=== PATIENT | male | born 1945 | race Caucasian/White ===

== ENCOUNTER 2017-07-28 15:23 | Inpatient (IN) | payer OTHER ==
[~2017-07-28] VITALS: Ht 188 cm; Wt 66.7 kg
--- NOTE | 2017-07-28 15:31 | ED MVC/FALL/TRAUMA COMPLAINT ---
History of Present Illness General Chief Complaint: Syncope and Near-Syncope Stated Complaint: BIBA ?VASOVAGAL, FALL, +HEADSTRIKE, N/V AND AMS Source: patient, old records, EMS Exam Limitations: no limitations Vital Signs & Intake/Output Vital Signs & Intake/Output Vital Signs Date Time Temp Pulse Resp B/P B/P Pulse O2 O2 Flow FiO2 Mean Ox Delivery Rate 07/28 1547 98 Room Air 07/28 1541 66 18 164/74 99 Room Air 07/28 1525 77 15 163/77 96 Room Air Room Air Allergies Coded Allergies: NO KNOWN ALLERGIES (11/30/13) Reconcile Medications No Known Home Medications Triage Note: 72M BIBA S/P SYNCOPAL FALL AT [employer] WITH HEADSTRIKE AND UNKNOWN LOC. PT INITIALLY MENTATING WELL FOR EMS ON ARRIVAL. RECEIVED 4MG IVP ZOFRAN IN ROUTE FOR NAUSEA. 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 ARRIVES AWAKE AND DISTRACTED, DIFFICULTY ARTICULATING SOME THOUGHTS AND FOLLOWING COMMANDS. COLLARED OFFICE ADMINISTRATOR AND MAINTAINED ON ARRIVAL. PUPILS EQUAL AND REACTIVE BUT CONSTRICTED AT 1MM EACH. DENIES THINNERS OR DAILY MEDS. HX OF SVT AND SYNCOPAL VASOVAGAL EPISODES IN THE PAST. ACCUCHECK 100. PT IMMEDIATELY TO CT ON ARRIVAL DUE TO AMS. UNABLE TO ANSWER OR RECALL IF ETOH INGESTED TODAY. DENIES ILLICIT DRUGS. DENIES CURRENT CP/SOB Triage Nurses Notes Reviewed? yes HPI: 72-year-old male with history of SVT, history of vasovagal episodes in the past presents brought in by ambulance after he had a fall unwitnessed at [employer] just prior to arrival. Per EMS the initial call was for a fall on arrival patient was mentating alert oriented 3 he is medicated was Zofran 4 mg IV in route for nausea. He is complaining of pain to the back of his head while in route the patient began repeating himself and became confused. On arrival the patient is alert to himself, he is not oriented to person or time. He denies any other complaints at this time no arm or leg injury he is complaining of pain and back his head he denies any chest pain nausea at this time. He states he is not sure if he drank alcohol he denies any drug use (Francis ALCOCER,Heath) Past History Travel History Traveled to [place] past 21 day No Medical History Any Pertinent Medical History? see below for history Neurological: NONE EENT: NONE Cardiovascular: SVT Respiratory: NONE Gastrointestinal: NONE Hepatic: NONE Renal: NONE Musculoskeletal: NONE Psychiatric: NONE Endocrine: NONE Surgical History Surgical History: non-contributory Psychosocial History What is your primary language Occitan Tobacco Use: Refused to answer Family History Hx Contributory? No (Heath Sterling) Review of Systems Review of Systems Constitutional: Reports: see HPI. Comments Review of systems: See HPI, All other systems negative. Constitutional, no chills no fever, HEENT: no sore throat no congestion Cardiovascular: No chest pain Skin: no rashes, no change in skin Respiratory: No dyspnea no cough no sputum GI: No nausea no vomiting, : No dysuria No hematuria Muscle skeletal: No joint pain, no back pain, no neck pain, Neurologic: no headache Heme/endocrine: No bruising (Heath Sterling) Physical Exam Physical Exam General Appearance: well developed/nourished, awake Comments: Well-developed well-nourished person in no acute distress HEENT: Normal EENT exam; PERRL, EOMI, no nystagmus. HEAD is atraumatic. moist mucous membranes. Neck: C-collar in place Back: Nontender, no CVA tenderness. Full range of motion Cardiovascular: Regular rate and rhythms no murmurs rub Respiratory: Chest nontender.There were no bony deformities, no asymmetry. No respiratory distress. Patient speaking in full complete sentences. Breath sounds clear to auscultation bilaterally: NO W/R/R Abdomen: Soft, nontender nondistended, no appreciable organomegaly. Normal bowel sounds. No rebound/guarding Extremity: No edema, full range of motion of extremities 5 out of 5 strength in bilateral upper and lower extremities atraumatic Neuro: Alert oriented x1, motor sensory normal, There were no obvious focal neurologic abnormalities. Skin: No appreciable rash on exposed skin, skin is warm and dry. Psych: Mood and affect is normal, memory and judgment is normal. Core Measures ACS in differential dx? Yes CVA/TIA Diagnosis No Sepsis Present: No Sepsis Focused Exam Completed? No (Heath Sterling) Progress Differential Diagnosis: abd injury, C/T/L spine injury, ext injury, ICH, spinal cord injury, seizure, intoxication, ami, dehydration, sepsis Plan of Care: Orders Procedure Date/time Status Regular Diet 07/28 D Active Patient Data 07/28 1716 Active Patient Data 07/28 1715 Active OXYGEN SETUP (GEN) 07/28 1701 Active Saline Lock 07/28 1701 Active Admit to inpatient 07/28 1701 Active Vital Signs 07/28 1701 Active Activity/Ambulation 07/28 1701 Active Code Status 07/28 1701 Active Add-on Test (ER Only) 07/28 1620 Active URINALYSIS 07/28 1556 Complete Telemetry/Inventory Auditor 07/28 1548 Active URINE DRUG SCREEN FOR ER ONLY 07/28 1545 Complete PROLACTIN 07/28 1542 Complete TROPONIN LEVEL 07/28 1527 Complete LACTIC ACID 07/28 1527 Complete ETHANOL 07/28 1527 Complete COMPREHENSIVE METABOLIC PANEL 07/28 1527 Complete CBC WITHOUT DIFFERENTIAL 07/28 152 Complete EKG 07/28 1527 Active Laboratory Tests 07/28/17 1620: Urine Opiates Screen < 100, Methadone Screen < 40, Barbiturate Screen < 60, Ur Phencyclidine Scrn < 6.00, Amphetamines Screen < 100, U Benzodiazepines Scrn < 85, Urine Cocaine Screen < 50, Urine Cannabis Screen < 5.00, Urine Color YEL, Urine Clarity CLEAR, Urine pH 7.5, Ur Specific [place] 1.015, Urine Protein NEG, Urine Ketones TRACE H, Urine Nitrite NEG, Urine Bilirubin NEG, Urine Urobilinogen 0.2, Ur Leukocyte Esterase NEG, Ur Microscopic EXAM NOT REQUIRED, Urine Hemoglobin NEG, Urine Glucose NEG 07/28/17 1542: Anion Gap 13, Estimated GFR > 60, BUN/Creatinine Ratio 16.7, Glucose 85, Lactic Acid 1.7, Calcium 9.6, Total Bilirubin 0.8, AST 29, ALT 37, Alkaline Phosphatase 70, Troponin I < 0.01, Total Protein 6.9, Albumin 4.1, Globulin 2.8, Albumin/ Globulin Ratio 1.5, Prolactin 35.3 H, CBC w Diff NO MAN DIFF REQ, RBC 5.29, MCV 87.4, MCH 28.9, MCHC 33.0, RDW 14.2, MPV 9.2, Gran % 62.5, Lymphocytes % 28.4, Monocytes % 6.8, Eosinophils % 1.5, Basophils % 0.8, Absolute Granulocytes 4.4, Absolute Lymphocytes 2.0, Absolute Monocytes 0.5, Absolute Eosinophils 0.1, Absolute Basophils 0.1, Serum Alcohol < 10.0 CAT scan labs ordered case discussed with Dr. OVERTON AGREES WITH PLAN Patient is able to tell me his prior profession however upon telling him today's he is not able to recall the holiday today. He does not recall the episode today or prodromal symptoms 07/28/2017 4:52:48 PM I updated Albert on HIS results, he does not recall the episode today that led to him coming to the ER, cranial nerves are intact he denies any complaints he is alert and oriented to himself he is unsure where he is or what date it is. case d/w dr overton agrees with plan Diagnostic Imaging: Viewed by Me: Radiology Read, CT Scan. Discussed w/RAD: Radiology Read, CT Scan. Radiology Impression: PATIENT: ALBERT PARK PRESENT AGE: 72 PATIENT ACCOUNT NO: [id number] : 47 LOCATION: [facility] ORDERING PHYSICIAN: Franco Overton MD SERVICE DATE: 07/28/17 EXAM TYPE: CAT - CT HEAD WO IV CONTRAST EXAMINATION: CT HEAD without contrast CLINICAL INFORMATION: Injury COMPARISON: No prior CT scan available for comparison. TECHNIQUE: Computer axial with reformatted coronal images acquired. Noncontrast exam DLP: 980 mGy-cm FINDINGS: CEREBRAL HEMISPHERES: There is no evidence of intra-axial or extra-axial mass, hemorrhage or acute infarct. BRAIN PARENCHYMA: Normal gould-white matter differentiation. SUBDURAL SPACE: No bleed. BASAL GANGLIA AND PINEAL GLAND: Unremarkable VENTRICLES: Symmetric and normal in size. CEREBELLUM AND BRAINSTEM: No space-occupying mass, hemorrhage or acute infarct. CEREBELLOPONTINE ANGLES: No lesion found. ORBITS: No intraorbital mass. VESSELS: Unremarkable SKULL BASE: Unremarkable INCLUDED SINUSES AT SKULL BASE: Clear SKULL AND SKIN: No fracture or bone lesion found. IMPRESSION: No CT evidence of intracranial space-occupying mass, bleed or infarct. DICTATED BY: Sofia Haddad MD DATE/TIME DICTATED:07/28/171545 SHOP DIRECTOR:MAHESH DATE/TIME TRANSCRIBED:07/28/171545 CONFIDENTIAL, DO NOT COPY WITHOUT APPROPRIATE AUTHORIZATION. <Electronically signed in Other Vendor System> SIGNED BY: Boo BHAKTA,Sofia 07/28/17 1555, PATIENT: ALBERT PARK PRESENT AGE: 72 PATIENT ACCOUNT NO: [id number] : 47 LOCATION: [facility] ORDERING PHYSICIAN: Franco Overton MD SERVICE DATE: 07/28/17 EXAM TYPE: CAT - CT CERV SPINE WO IV CONTRAST EXAMINATION: CT CERVICAL SPINE without contrast CLINICAL INFORMATION: Injury COMPARISON: No prior CT available, TECHNIQUE: Computed axial sagittal and coronal images acquired using department' s standard protocol. CONTRAST: None DLP: 980 mGy-cm FINDINGS: SKULL BASE: Visualized structures at skull base are normal, Included facial sinuses are clear, CERVICAL VERTEBRAE: Seven cervical vertebrae identified maintaining proper height and alignment, DISCS: C1-C2: There is no CT evidence of significant osseous narrowing of the central canal or neural foramen. C2-C3: There is no CT evidence of significant osseous narrowing of the central canal or neural foramen. C3-C4: There is no CT evidence of significant osseous narrowing of the central canal or neural foramen. C4-C5: There is degenerative disc disease evident by narrowing of disc space and small posterior and lateral osteophyte ridge caused foraminal stenosis on the RIGHT. C5-C6: Degenerative disc disease combined with osteophyte ridge causes foraminal stenosis on the RIGHT. No central stenosis. No fractures. C6-C7: Degenerative disc disease evidenced by narrowing of disc space and developed osteophyte ridges cause mild narrowing of the LEFT foramen. C7-T1: There is no CT evidence of significant osseous narrowing of the central canal or neural foramen. PARAVERTEBRAL SOFT TISSUE: Paravertebral soft tissues unremarkable. IMPRESSION: 1. No CT evidence of acute fracture. 2. Degenerative disc disease at C4-C5, C5-C6, C6-C7 and C7-T1 , 3. Combination of posterior osteophyte ridges and facet joints arthropathy causes foraminal stenosis at multiple levels as above. DICTATED BY: Boo BHAKTA, Sofia DATE/TIME DICTATED:07/28/171551 SHOP DIRECTOR:MAHESH DATE/TIME TRANSCRIBED:07/28/171551 CONFIDENTIAL, DO NOT COPY WITHOUT APPROPRIATE AUTHORIZATION. <Electronically signed in Other Vendor System> SIGNED BY: Boo BHATKA,Hadeer 07/28/17 1601, PATIENT: ALBERT PARK PRESENT AGE: 72 PATIENT ACCOUNT NO: [id number] : 47 LOCATION: [facility] ORDERING PHYSICIAN: Heath ALCOCER SERVICE DATE: 07/28/17-1554 EXAM TYPE: RAD - XRY-PORTABLE CHEST XRAY EXAMINATION: XR PORTABLE CHEST CLINICAL INFORMATION: Syncope COMPARISON: None TECHNIQUE: Portable AP view of the chest was obtained. FINDINGS: The cardiac size and mediastinal silhouette are normal. No pulmonary venous congestion. The lungs are symmetrically expanded and clear. No pleural effusion or pneumothorax. The visualized bones are unremarkable. IMPRESSION: No acute cardiopulmonary findings. DICTATED BY: Elise Gaxiola MD DATE/TIME DICTATED:07/28/171645 SHOP DIRECTOR:MAHESH DATE/TIME TRANSCRIBED:07/28/171645 CONFIDENTIAL, DO NOT COPY WITHOUT APPROPRIATE AUTHORIZATION. <Electronically signed in Other Vendor System> SIGNED BY: Elise Gaxiola MD 07/28/171650 Initial ED EKG: normal intervals, normal p-waves, normal QRS complex, normal sinus rhythm Prior EKG: unchanged Rhythm Strip: normal sinus rhythm (Heath Sterling) Departure Departure Time of Disposition: 1657 Disposition: STILL A PATIENT Condition: Stable Clinical Impression Primary Impression: Syncope Secondary Impressions: Concussion, Fall Referrals: Deyvi BHAKTA,Gerald Contreras (PCP/Family) Departure Forms: Customer Survey General Discharge Information Prescriptions: Current Visit Scripts No Known Home Medications Admission Note Spoke With: Lily Ramos MD Documentation of Exam: Documentation of any treatments & extenuating circumstances including Concerns Regarding Discharge (functional status, medication knowledge or non-compliance, living conditions, etc.) that warrant an admission rather than observation: NEURO CHECKS, POSSIBLE MRI, NEURO CONSULT, PREMATURE DISCHARGE WOULD BE MEDICALLY HARMFUL (Heath Sterling) PA/HAT CUTTER Co-Sign Statement Statement: ED Attending supervision documentation- x I saw and evaluated the patient. I have also reviewed all the pertinent lab results and diagnostic results. I agree with the findings and the plan of care as documented in the PA's/HAT CUTTER's documentation. Fall with headstrike, nausea, amnesia, dizziness. Confusion continues in ED, otherwise no focal neuro deficits [] I have reviewed the ED Record and agree with the PA's/HAT CUTTER's documentation. [] Additions or exceptions (if any) to the PAs/HAT CUTTER's note and plan are summarized below: [] (Rita BHAKTA,Franco)
[2017-07-28 15:55] LABS: ABSOLUTE BASOPHIL COUNT 0.1 /CUMM (0.0-0.2); ABSOLUTE EOSINOPHIL COUNT 0.1 /CUMM (0.0-0.7); ABSOLUTE GRANULOCYTE CT 4.4 /CUMM (1.4-6.5); ABSOLUTE MONOCYTE COUNT 0.5 /CUMM (0.10-0.60); BASOPHIL % 0.8 % (0.0-2.0); EOSINOPHIL % 1.5 % (0-5); GRANULOCYTE % 62.5 % (42.2-75.2); HEMATOCRIT 46.3 % (42-52); MEAN CORPUSCULAR HGB 28.9 PG (27.0-31.0); MEAN CORPUSCULAR VOLUME 87.4 FL (80.0-94.0); MEAN PLATELET VOLUME 9.2 FL (7.4-10.4); PLATELET COUNT 245 /CUMM (130-400); RBC DISTRIBUTION WIDTH 14.2 % (11.5-14.5); RED BLOOD CELL CT 5.29 /CUMM (4.70-6.10); WHITE BLOOD CELL COUNT 7.1 /CUMM (4.8-10.8)
--- NOTE | 2017-07-28 15:55 | CT SCAN REPORT ---
EXAMINATION: CT HEAD without contrast CLINICAL INFORMATION: Injury COMPARISON: No prior CT scan available for comparison. TECHNIQUE: Computer axial with reformatted coronal images acquired. Noncontrast exam DLP: 980 mGy-cm FINDINGS: CEREBRAL HEMISPHERES: There is no evidence of intra-axial or extra-axial mass, hemorrhage or acute infarct. BRAIN PARENCHYMA: Normal gould-white matter differentiation. SUBDURAL SPACE: No bleed. BASAL GANGLIA AND PINEAL GLAND: Unremarkable VENTRICLES: Symmetric and normal in size. CEREBELLUM AND BRAINSTEM: No space-occupying mass, hemorrhage or acute infarct. CEREBELLOPONTINE ANGLES: No lesion found. ORBITS: No intraorbital mass. VESSELS: Unremarkable SKULL BASE: Unremarkable INCLUDED SINUSES AT SKULL BASE: Clear SKULL AND SKIN: No fracture or bone lesion found. IMPRESSION: No CT evidence of intracranial space-occupying mass, bleed or infarct.
--- NOTE | 2017-07-28 16:01 | CT SCAN REPORT ---
EXAMINATION: CT CERVICAL SPINE without contrast CLINICAL INFORMATION: Injury COMPARISON: No prior CT available, TECHNIQUE: Computed axial sagittal and coronal images acquired using department's standard protocol. CONTRAST: None DLP: 980 mGy-cm FINDINGS: SKULL BASE: Visualized structures at skull base are normal, Included facial sinuses are clear, CERVICAL VERTEBRAE: Seven cervical vertebrae identified maintaining proper height and alignment, DISCS: C1-C2: There is no CT evidence of significant osseous narrowing of the central canal or neural foramen. C2-C3: There is no CT evidence of significant osseous narrowing of the central canal or neural foramen. C3-C4: There is no CT evidence of significant osseous narrowing of the central canal or neural foramen. C4-C5: There is degenerative disc disease evident by narrowing of disc space and small posterior and lateral osteophyte ridge caused foraminal stenosis on the RIGHT. C5-C6: Degenerative disc disease combined with osteophyte ridge causes foraminal stenosis on the RIGHT. No central stenosis. No fractures. C6-C7: Degenerative disc disease evidenced by narrowing of disc space and developed osteophyte ridges cause mild narrowing of the LEFT foramen. C7-T1: There is no CT evidence of significant osseous narrowing of the central canal or neural foramen. PARAVERTEBRAL SOFT TISSUE: Paravertebral soft tissues unremarkable. IMPRESSION: 1. No CT evidence of acute fracture. 2. Degenerative disc disease at C4-C5, C5-C6, C6-C7 and C7-T1, 3. Combination of posterior osteophyte ridges and facet joints arthropathy causes foraminal stenosis at multiple levels as above.
--- NOTE | 2017-07-28 16:51 | RADIOLOGY REPORT ---
EXAMINATION: XR PORTABLE CHEST CLINICAL INFORMATION: Syncope COMPARISON: None TECHNIQUE: Portable AP view of the chest was obtained. FINDINGS: The cardiac size and mediastinal silhouette are normal. No pulmonary venous congestion. The lungs are symmetrically expanded and clear. No pleural effusion or pneumothorax. The visualized bones are unremarkable. IMPRESSION: No acute cardiopulmonary findings.
--- NOTE | 2017-07-28 17:08 | History & Physical ---
Lupis BHAKTA,[facility] 07/28/17 6337: General Information and HPI MD Statement: I have seen and personally examined ADEN PARK and documented this H&P. The patient is a 72 year old M who presented with a patient stated chief complaint of [syncopal episode]. Source of Information: patient, old records Exam Limitations: no limitations History of Present Illness: 72-year-old male with past medical history of SVT, anxiety, and recurrent vasovagal attack who presented after syncopal episode followed by confusion. The patient had one beer and pizza, he then went to [employer] for shopping. He reports feeling lightheaded as if he is going to get vasovagal attack. He then started to breathe slowly which a technique he does to avoid the vasovagal attacks, his lightheadedness then resolved and he continued shopping. Then he had an syncopal episode on his way to the car. He denies any palpitation, chest pain, shortness breath or dizziness prior to the episode. It's not clear if he had the seizure activity, however he did not bite his tongue or lose control over his bowel or urine habits. While in the ED he was confused and disoriented , however he was alert and oriented X3 when I saw him. He denies any current active complaints except mild lightheadedness and mild occipital headache from the fall. The patient reports sleep per patient during the past 2 days secondary to life stressors. The patient was seen in 2013 because of palpitation and was found to be in SVT with a heart rate to 200, at that time he responded well to adenosine and was discharged and instructed to follow with Dr. Walsh and Dr. Summers. He had extensive workup as an outpatient that didn't relieve any significant finding, and since then he didn't follow up with branch director. Allergies/Medications Allergies: Coded Allergies: NO KNOWN ALLERGIES (11/30/13) Past History Travel History Traveled to [place] past 21 day No Medical History Neurological: NONE EENT: NONE Cardiovascular: SVT Respiratory: NONE Gastrointestinal: NONE Hepatic: NONE Renal: NONE Musculoskeletal: NONE Psychiatric: NONE Endocrine: NONE Surgical History Surgical History: non-contributory Review of Systems Review of Systems Constitutional: Denies: chills, diaphoresis, fever, malaise, weakness, unexplained weight loss. EENTM: Denies: visual changes, hearing changes. Cardiovascular: Reports: syncope. Denies: chest pain, edema, orthopena, palpitations, peripheral edema. Respiratory: Denies: cough, orthopnea, short of breath, sputum production, wheezing. GI: Reports: nausea. Denies: bloating, constipation, diarrhea, vomiting. Genitourinary: Denies: dysuria, hematuria. Skin: Denies: rash. Neurological/Psychological: Reports: confusion, headache. Denies: anxiety, cognitive dysfunction, depressed , dementia, numbness, paresthesia, tingling, tremors, tonic-clonic seizures. Exam & Diagnostic Data Last 24 Hrs of Vital Signs/I&O Vital Signs Date Time Temp Pulse Resp B/P B/P Pulse O2 O2 Flow FiO2 Mean Ox Delivery Rate 07/28 1847 81 18 166/78 98 Room Air 07/28 1755 88 18 179/83 99 Room Air 07/28 1547 98 Room Air 07/28 1541 66 18 164/74 99 Room Air 07/28 1525 77 15 163/77 96 Room Air Room Air Physical Exam General Appearance Alert, Oriented X3, Cooperative, No Acute Distress Skin No Rashes HEENT PERRLA, EOMI, Mucous Membr. moist/pink, mild lump in the except hip region secondary to the fall Neck Supple, No JVD Cardiovascular Regular Rate, Normal S1, Normal S2, No Murmurs Lungs Clear to Auscultation, Normal Air Movement Abdomen Soft, No Tenderness Neurological Normal Speech, Strength at 5/5 X4 Ext, Sensation Intact, Cranial Nerves 3-12 NL Extremities No Clubbing, No Cyanosis, No Edema Last 24 Hrs of Labs/Tang: Laboratory Tests 07/28/17 1827: Lactic Acid Cancelled 07/28/17 1620: Urine Opiates Screen < 100, Methadone Screen < 40, Barbiturate Screen < 60, Ur Phencyclidine Scrn < 6.00, Amphetamines Screen < 100, U Benzodiazepines Scrn < 85, Urine Cocaine Screen < 50, Urine Cannabis Screen < 5.00, Urine Color YEL, Urine Clarity CLEAR, Urine pH 7.5, Ur Specific [place] 1.015, Urine Protein NEG, Urine Ketones TRACE H, Urine Nitrite NEG, Urine Bilirubin NEG, Urine Urobilinogen 0.2, Ur Leukocyte Esterase NEG, Ur Microscopic EXAM NOT REQUIRED, Urine Hemoglobin NEG, Urine Glucose NEG 07/28/17 1542: Anion Gap 13, Estimated GFR > 60, BUN/Creatinine Ratio 16.7, Glucose 85, Lactic Acid 1.7, Calcium 9.6, Total Bilirubin 0.8, AST 29, ALT 37, Alkaline Phosphatase 70, Troponin I < 0.01, Total Protein 6.9, Albumin 4.1, Globulin 2.8, Albumin/ Globulin Ratio 1.5, TSH 2.390, Free T4 0.94, Free T3 4.2, Prolactin 35.3 H, CBC w Diff NO MAN DIFF REQ, RBC 5.29, MCV 87.4, MCH 28.9, MCHC 33.0, RDW 14.2, MPV 9.2, Gran % 62.5, Lymphocytes % 28.4, Monocytes % 6.8, Eosinophils % 1.5, Basophils % 0.8, Absolute Granulocytes 4.4, Absolute Lymphocytes 2.0, Absolute Monocytes 0.5, Absolute Eosinophils 0.1, Absolute Basophils 0.1, Serum Alcohol < 10.0 Assessment/Plan Assessment: 72-year-old male with a past medical history of SVT and recurrent vasovagal attack. He was shopping when he felt lightheaded, soon after he had an episode of syncopal followed by confusion that continued until he was in the ED. Even though the patient denies palpitation arrhythmia still high in the differential given his past medical history, his confusion is possibly secondary to concussion given the head trauma. His CT head ruled out any intracranial pathology. It is also possible that he had seizure activity which can also explain the confusion, especially given elevated prolactin on admission. We will send for thyroid function test as TRH can increase the prolactin level as well. Plan #Syncopal episode followed by confusion * Monitor in telemetry to rule out arrhythmias * Rule out ACS with serial troponin and EKG * Orthostatic check * Seizure precaution * EEG in the morning * Echocardiogram * Cardiology consult with #Hyperlipidemia * Continue statin #BPH * Continue tamsulosin after ruling out orthostatic hypotension Regular diet DVT prophylaxis subcutaneous heparin Full code As Ranked By This Provider Problem List: 1. Syncope 2. Fall Core Measures/Misc (11/17) Acute Coronary Syndrome ACS Diagnosis: No Congestive Heart Failure Congestive Heart Failure Diagnosis No Cerebrovascular Accident CVA/TIA Diagnosis: No VTE (View Protocol) VTE Risk Factors Age>40 No Mechanical VTE Prophylaxis d/t N/A MechProphylax Ordered No VTE Pharm Prophylaxis d/t NA PharmProphylax ordered Sepsis (View protocol) Sepsis Present: No If YES complete Sepsis Event Note If YES complete Sepsis Event Note Gabino BHAKTA, [facility] 07/28/171935: General Information and HPI Allergies/Medications Home Med list Rosuvastatin Calcium (Crestor) 10 MG TABLET 1 TAB PO DAILY hld (Reported) Tamsulosin HCl 0.4 MG CAP.ER.24H 1 CAP PO DAILY bph (Reported) Core Measures/Misc (11/17) Sepsis (View protocol) If YES complete Sepsis Event Note If YES complete Sepsis Event Note Attending MD Review Statement Attending Statement Attending MD Statement: examined this patient, discuss w/resident/PA/WINDOW SHADE CUTTER AND MOUNTER, agreed w/resident/PA/WINDOW SHADE CUTTER AND MOUNTER, reviewed images, amended to note Attending Assessment/Plan: 72 yo M with h/o anxiety, vasovagal episodes, SVT, BPH, HLD, previous left kidney ablation ?cancer, is brought after a syncopal episode at [facility] with head strike. As per ER records, it was an unwitnessed episode with unknown duration of LOC and if he may have had a seizure. Upon ER arrival, patient was confused (unsure of events) and oriented only to person. Upon my evaluation, patient was alert and oriented, able to provide more details. He reports going to a restaurant earlier today, ate a pizza, salad and drank a glass of beer. He then went to [facility] to check out a few things. At one point, he felt palpitations and lightheadedness, but was able to curb the episode by taking a deep breath/ Valsalva's maneuver. He then started walking around [facility], and the next thing he remembers is being in the ER. He currently feels lightheaded especially when changing positions and from the impact of the fall. He denies chest pain, dyspnea, palpitations, nausea or diaphoresis. Of note, patient was seen in [place] [facility] (Nov 2013) for an episode of SVT that responded to adenosine. He had been evaluated by Dr. Gray and Dr. Finney with 30-day monitor, Tilt table testing, stress test that were unremarkable. He also had a stress test that was normal. He intermittently has episodes of palpitations and lightheadedness that breaks with 'taking a deep breath'/ Valsalva's maneuver, and he has never passed out. Previously, he used to have more frequent episodes but of late it is only once every 4 months. Patient does not consume enough fluids, has been sleepless for past 2 days and recently has been stressed about home furnishings. Vitals: afebrile, HR 70-80's, BP 160/80, sats 99% RA. Non focal neuro exam. Very dry mucous membranes. Labs: troponin is negative. TSH, free T4 normal. Prolactin is elevated at 35.3. UA and Utox negative. Alcohol <10. CT head/ cervical spine: no acute fracture, degenerative disc disease of cervical spine. CXR: no acute findings. EKG: Sinus rhythm, no acute changes. QTc 431. Orthostats: BP Lying 170/79 --> Standing 186/82 --> Lying 163/84, patient was dizzy throughout with position change. Assessment and plan: 1. Syncope and collapse - seems multifactorial - most likely related to SVT ( although no EKG documentation) and orthostatic hypotension. Patient was confused on ER arrival and his prolactin was elevated although nonspecific, seizure episode needs to be ruled out. 2. Undiagnosed hypertension - not on any meds 3. History of SVT 4. History of HLD and BPH - Admit to Telemetry - Neurochecks - Fall, seizure precautions - Monitor for arrhythmias - Serial EKG and troponin to rule out ACS - Obtain Echocardiogram - Cardio consult (Dr. Gray) - Obtain records of previous stress test/ Holter. - Gentle IV fluids, recheck orthostats in AM - Encourage PO intake - Monitor BP overnight, if persistently elevated, we may need to initiate therapy with CCB or GEETHA - EEG in AM - Continue home meds tamsulosin and statin - PT eval DVT ppx Lovenox. Full code.
[2017-07-28] MEDS ORDERED: CRESTOR10 M1 PO (18:08)
[2017-07-28] MEDS ORDERED: TAMSULOSIN HCL0.4 M1 PO (18:08)
--- NOTE | 2017-07-28 19:37 | Admission Certification ---
Admission Certification Certification Statement - As attending physician, I certify that at the time of - admission, based on clinical presentation, severity of - symptoms, need for further diagnostic testing and - therapeutic interventions, and risk of adverse outcomes - without in-hospital treatment, in my clinical assessment, - this patient requires an acute hospital stay for a minimum - of two nights or longer. I have also considered psychsocial - factors such as support system, advanced age, financial - issues, cognitive issues, and failed out-patient treatments, - past re-admission history, safety of patient, and lack of - compliance as applicable. Specific rationale supporting this admission is: Syncope
[2017-07-28 22:47] VITALS: BP 152/80
[2017-07-29 03:14] VITALS: BP 164/78
[2017-07-29 03:29] LABS: ABSOLUTE BASOPHIL COUNT 0 /CUMM (0.0-0.2); ABSOLUTE EOSINOPHIL COUNT 0.1 /CUMM (0.0-0.7); ABSOLUTE GRANULOCYTE CT 5.8 /CUMM (1.4-6.5); ABSOLUTE LYMPH COUNT 1.6 /CUMM (1.2-3.4); ABSOLUTE MONOCYTE COUNT 0.7 /CUMM (0.10-0.60); BASOPHIL % 0.3 % (0.0-2.0); EOSINOPHIL % 0.9 % (0-5); HEMATOCRIT 41.9 % (42-52); MEAN CORPUSCULAR HGB 29.2 PG (27.0-31.0); MEAN CORPUSCULAR HGB CONC 33.5 G/DL (33.0-37.0); MEAN CORPUSCULAR VOLUME 87.3 FL (80.0-94.0); PLATELET COUNT 216 /CUMM (130-400); WHITE BLOOD CELL COUNT 8.2 /CUMM (4.8-10.8)
[2017-07-29 06:57] VITALS: BP 144/78
--- NOTE | 2017-07-29 07:17 | PN- Housestaff ---
Opal BHAKTA,[facility] 07/29/17 0717: Subjective Follow-up For: Syncope Tele-Events Since Last Visit: NSR with HR 60-73. No overnight events. Subjective: Patient seen and examined. States that he has difficulty moving his head around and getting up from bed due to dizziness. He feels the fluid hydration is improving it. Describes a history of vasovagal syncope with episodes preceeded by flushing and warmth sensation, however, the episode yesterday was completely different. Review of Systems Constitutional: Reports: no symptoms. Objective Last 24 Hrs of Vital Signs/I&O Vital Signs Date Time Temp Pulse Resp B/P B/P Pulse O2 O2 Flow FiO2 Mean Ox Delivery Rate 07/29 0657 98.3 63 12 144/78 95 Room Air 07/29 0314 62 164/78 07/28 2247 98.8 70 22 152/80 98 07/28 2144 62 18 155/76 99 Room Air 07/28 2053 98.5 79 18 160/80 99 Room Air 07/28 1847 81 18 166/78 98 Room Air 07/28 1755 88 18 179/83 99 Room Air 07/28 1547 98 Room Air 07/28 1541 66 18 164/74 99 Room Air 07/28 1525 77 15 163/77 96 Room Air Room Air Intake & Output 07/29 1600 07/29 0800 07/29 0000 Intake Total 225 Output Total 500 Balance -275 Intake, IV 225 Output, Urine 500 Patient 197 lb Weight Weight Bed scale Measurement Method Physical Exam General Appearance: Alert, Oriented X3, Cooperative, Mild Distress Skin: No Rashes, No Breakdown Skin Temp/Moisture Exam: Warm/Dry Sepsis Skin Exam (color): Normal for Ethnicity HEENT: Atraumatic Cardiovascular: Normal S1, Normal S2, No Murmurs Lungs: Clear to Auscultation, Normal Air Movement Abdomen: Soft, No Tenderness Neurological: Normal Speech Extremities: No Edema Last 24 Hrs of Lab/Tang Results Last 24 Hrs of Labs/Mics: Laboratory Tests 07/29/17 0255: Anion Gap 8, Estimated GFR > 60, BUN/Creatinine Ratio 15.0, Troponin I < 0.01, CBC w Diff NO MAN DIFF REQ, RBC 4.80, MCV 87.3, MCH 29.2, MCHC 33.5, RDW 14.0, MPV 9.0, Gran % 71.0, Lymphocytes % 19.0 L, Monocytes % 8.8, Eosinophils % 0.9, Basophils % 0.3, Absolute Granulocytes 5.8, Absolute Lymphocytes 1.6, Absolute Monocytes 0.7 H, Absolute Eosinophils 0.1, Absolute Basophils 0 07/28/172045: Troponin I < 0.01 07/28/17 1827: Lactic Acid Cancelled 07/28/17 1620: Urine Opiates Screen < 100, Methadone Screen < 40, Barbiturate Screen < 60, Ur Phencyclidine Scrn < 6.00, Amphetamines Screen < 100, U Benzodiazepines Scrn < 85, Urine Cocaine Screen < 50, Urine Cannabis Screen < 5.00, Urine Color YEL, Urine Clarity CLEAR, Urine pH 7.5, Ur Specific [place] 1.015, Urine Protein NEG, Urine Ketones TRACE H, Urine Nitrite NEG, Urine Bilirubin NEG, Urine Urobilinogen 0.2, Ur Leukocyte Esterase NEG, Ur Microscopic EXAM NOT REQUIRED, Urine Hemoglobin NEG, Urine Glucose NEG 07/28/17 1542: Anion Gap 13, Estimated GFR > 60, BUN/Creatinine Ratio 16.7, Glucose 85, Lactic Acid 1.7, Calcium 9.6, Total Bilirubin 0.8, AST 29, ALT 37, Alkaline Phosphatase 70, Troponin I < 0.01, Total Protein 6.9, Albumin 4.1, Globulin 2.8, Albumin/ Globulin Ratio 1.5, TSH 2.390, Free T4 0.94, Free T3 4.2, Prolactin 35.3 H, CBC w Diff NO MAN DIFF REQ, RBC 5.29, MCV 87.4, MCH 28.9, MCHC 33.0, RDW 14.2, MPV 9.2, Gran % 62.5, Lymphocytes % 28.4, Monocytes % 6.8, Eosinophils % 1.5, Basophils % 0.8, Absolute Granulocytes 4.4, Absolute Lymphocytes 2.0, Absolute Monocytes 0.5, Absolute Eosinophils 0.1, Absolute Basophils 0.1, Serum Alcohol < 10.0 Assessment/Plan Assessment: 72-year-old male with a past medical history of SVT and recurrent vasovagal attack was brought to the ED after he had an episode of unresponsiveness while walking to his car. Assessment: 1. Syncope 2. Dizziness 3. History of Vasovagal Syncope 4. History of Hyperlipidemia 5. History of BPH Plan: * Continue monitoring on telemetry for now. * It is unclear what precipitated his episode of syncope. He states this one is different from his usual vasovagal symptoms * It is possible he had an episode of seizure as on regaining consciousness in the ED he had confusion suggestive of a post ictal state. * It is unclear what is precipitating his dizziness at this point. * He had a +ve angelica-hallpike and was treated with talibgrayson helm. * Continue PT * EEG - pending * Neurology evaluation - pending * Echocardiogram to assess LVEF etc - pending * Cardiology suggests for a possible loop recorder. * Continue statin and tamsulosin * Diet: regular * DVT Prophylaxis: SC Lovenox * Code: Full Code Problem List: 1. Syncope Pain Ratin Pain Location: none Pain Goal: Remain pain free Pain Plan: none Tomorrow's Labs & Rationales: none DVT/Prophylaxis: pharmacological Fadumo Gray MD 07/29/17 1018: Attending MD Review Statement Attending Statement Attending MD Statement: examined this patient, discuss w/resident/PA/MORTGAGE OPERATIONS MANAGER, agreed w/resident/PA/MORTGAGE OPERATIONS MANAGER, reviewed EMR data (avail), discussed with nursing, discussed with case mgmt, reviewed images Attending Assessment/Plan: 72-year-old male with past medical history both of SVT in the distant past and history of recurrent vasovagal syncopal events. He is here after a syncopal event. This event was markedly different from the others in that he had no warning, no aura, lost consciousness and was confused for a period of time after that. He was orthostatic in the ER and he continues to remain dizzy now despite adequate fluid hydration. The postal transportation clerk is going to see him and we are going to get an echocardiogram. Given the confusion post syncope and the elevated prolactin, will also have neurology see him to make sure that this wasn't a seizure-like event.
--- NOTE | 2017-07-29 09:57 | Cons- Cardiology ---
General Information and HPI Consulting Request Date of Consult: 07/29/17 Requested By: Isaac BHAKTA,Fadumo Contreras Reason for Consult: Syncope Source of Information: patient Exam Limitations: no limitations History of Present Illness: The patient is a 72-year-old male with a history of paroxysmal supraventricular tachycardia in the past, recurrent vasovagal episodes who now presents with a syncopal episode. Patient states that he was seen approximately [address] Walsh and Dr[address] Finney for episodes of SVT. He presented to the emergency room with palpitations at that time was found to be in an SVT and treated with adenosine. His episodes were infrequent and therefore at that time and ablation was not recommended. He did have a 30 day monitor that demonstrated no arrhythmias. He does have recurrent episodes of near syncope that appear to be vasovagal. He states he is normally able to control them by taking a few deep breaths or, if necessary, placing his head between his legs. He has never had syncope up until this admission. He states that he had a beer and some pizza prior to going to [facility]. He was walking and had a syncopal episode. He does not recall anything including being transported to the hospital, the CAT scan etc. Finally awoke and does remember being asked questions regarding the day of the week etc. Just prior to the episode he denied chest pain shortness of breath or palpitations. He did not lose control his bladder or urine. He denies smoking, drug use, nor excessive alcohol consumption. He continues to have episodes of dizziness with sitting up and lying back down where he feels that the room is spinning. Upon further questioning he states that he was in [place] had "the worst cold of his life". It was thought that he may have had valley fever. He had dizziness at that time. Allergies/Medications Allergies: Coded Allergies: NO KNOWN ALLERGIES (11/30/13) Home Med List: Rosuvastatin Calcium (Crestor) 10 MG TABLET 1 TAB PO DAILY hld (Reported) Tamsulosin HCl 0.4 MG CAP.ER.24H 1 CAP PO DAILY bph (Reported) Current Medications: Current Medications Sig/Shamika Start time Last Medication Dose Route Stop Time Status Admin Atorvastatin Calcium 40 MG 1700 07/29 1700 AC PO Ceftriaxone Sodium 1,000 MG ONCE ONE 07/28 2014 CAN IV 07/29 2015 Heparin Sodium 5,000 UNIT Q8 07/28 2200 AC 07/29 (Porcine) SC 0606 Naloxone HCl 0 .STK-MED ONE 07/28 1543 DC .ROUTE Sodium Chloride 1,000 ML Q13H 07/28 2145 AC 07/29 IV 07/29 2344 0254 Sodium Chloride 1,000 ML BOLUS ONE 07/28 2130 CAN IV 07/28 2229 Sodium Chloride 1,000 ML BOLUS ONE 07/28 1600 DC 07/28 IV 07/28 1659 1600 Tamsulosin HCl 0.4 MG DAILY 07/29 0900 AC PO Review of Systems Review of Systems: Eyes no blurred or double vision Ears no deafness or ringing Nose and throat no recurrent sinusitis Lungs per history of present illness Heart per history of present illness Abdomen no nausea vomiting Musculoskeletal occasional muscle and joint pains Psych no anxiety or depression Neuro as per HPI Endocrine no heat or cold intolerance Past History Travel History Traveled to [place] past 21 day No Medical History Blood Transfusion Hx: Yes Neurological: NONE EENT: NONE Cardiovascular: SVT Respiratory: NONE Gastrointestinal: NONE Hepatic: NONE Renal: NONE Musculoskeletal: NONE Psychiatric: NONE Endocrine: NONE Blood Disorders: NONE Cancer(s): NONE 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 Home Smoking Status: Never Smoked Exam & Diagnostic Data Vital Signs and I&O Vital Signs Date Time Temp Pulse Resp B/P B/P Pulse O2 O2 Flow FiO2 Mean Ox Delivery Rate 07/29 0657 98.3 63 12 144/78 95 Room Air 07/29 0314 62 164/78 07/28 2247 98.8 70 22 152/80 98 07/28 2144 62 18 155/76 99 Room Air 07/28 2053 98.5 79 18 160/80 99 Room Air 07/28 1847 81 18 166/78 98 Room Air 07/28 1755 88 18 179/83 99 Room Air 07/28 1547 98 Room Air 07/28 1541 66 18 164/74 99 Room Air 07/28 1525 77 15 163/77 96 Room Air Room Air Intake & Output 07/29 1600 07/29 0800 07/29 0000 07/28 1600 07/28 0800 07/28 0000 Intake Total 225 Output Total 500 Balance -275 Intake, IV 225 Output, Urine 500 Patient 197 lb Weight Weight Bed scale Measurement Method Physical Exam: Patient is a well-developed well-nourished male appearing in no acute distress HEENT is unremarkable Neck is supple there is no JVD Lungs are clear Heart regular rhythm S1 and S2 are normal no murmurs gallops or rubs Abdomen bowel sounds positive Extremities without edema Skin warm and dry Neuro no focal deficits Lymphatic no adenopathy Labs/Tang Results: Laboratory Tests 07/29 07/28 07/28 0255 2046 1827 Chemistry Sodium (137 - 145 mmol/L) 142 Potassium (3.5 - 5.1 mmol/L) 4.1 Chloride (98 - 107 mmol/L) 108 H Carbon Dioxide (22 - 30 mmol/L) 25 Anion Gap (5 - 16) 8 BUN (9 - 20 mg/dL) 12 Creatinine (0.7 - 1.2 mg/dL) 0.8 Estimated GFR (>60 ml/min) > 60 BUN/Creatinine Ratio (7 - 25 %) 15.0 Lactic Acid Cancelled Troponin I (<0.11 ng/ml) < 0.01 < 0.01 Hematology CBC w Diff NO MAN DIFF REQ WBC (4.8 - 10.8 /CUMM) 8.2 RBC (4.70 - 6.10 /CUMM) 4.80 Hgb (14.0 - 18.0 G/DL) 14.0 Hct (42 - 52 %) 41.9 L MCV (80.0 - 94.0 FL) 87.3 MCH (27.0 - 31.0 PG) 29.2 MCHC (33.0 - 37.0 G/DL) 33.5 RDW (11.5 - 14.5 %) 14.0 Plt Count (130 - 400 /CUMM) 216 MPV (7.4 - 10.4 FL) 9.0 Gran % (42.2 - 75.2 %) 71.0 Lymphocytes % (20.5 - 51.1 %) 19.0 L Monocytes % (1.7 - 9.3 %) 8.8 Eosinophils % (0 - 5 %) 0.9 Basophils % (0.0 - 2.0 %) 0.3 Absolute Granulocytes (1.4 - 6.5 /CUMM) 5.8 Absolute Lymphocytes (1.2 - 3.4 /CUMM) 1.6 Absolute Monocytes (0.10 - 0.60 /CUMM) 0.7 H Absolute Eosinophils (0.0 - 0.7 /CUMM) 0.1 Absolute Basophils (0.0 - 0.2 /CUMM) 0 07/28 07/28 1620 1542 Chemistry Sodium (137 - 145 mmol/L) 143 Potassium (3.5 - 5.1 mmol/L) 3.8 Chloride (98 - 107 mmol/L) 103 Carbon Dioxide (22 - 30 mmol/L) 26 Anion Gap (5 - 16) 13 BUN (9 - 20 mg/dL) 15 Creatinine (0.7 - 1.2 mg/dL) 0.9 Estimated GFR (>60 ml/min) > 60 BUN/Creatinine Ratio (7 - 25 %) 16.7 Glucose (65 - 99 mg/dL) 85 Lactic Acid (0.7 - 2.1 mmol/L) 1.7 Calcium (8.4 - 10.2 mg/dL) 9.6 Total Bilirubin (0.2 - 1.3 mg/dL) 0.8 AST (17 - 59 U/L) 29 ALT (21 - 72 U/L) 37 Alkaline Phosphatase (< 127 U/L) 70 Troponin I (<0.11 ng/ml) < 0.01 Total Protein (6.3 - 8.2 g/dL) 6.9 Albumin (3.5 - 5.0 g/dL) 4.1 Globulin (1.9 - 4.2 gm/dL) 2.8 Albumin/Globulin Ratio (1.1 - 2.2 %) 1.5 TSH (0.270 - 4.200 uIU/mL) 2.390 Free T4 (0.78 - 2.44 ng/dL) 0.94 Free T3 (2.45 - 5.93 pg/mL) 4.2 Prolactin (3.7 - 17.9 ng/mL) 35.3 H Hematology CBC w Diff NO MAN DIFF REQ WBC (4.8 - 10.8 /CUMM) 7.1 RBC (4.70 - 6.10 /CUMM) 5.29 Hgb (14.0 - 18.0 G/DL) 15.3 Hct (42 - 52 %) 46.3 MCV (80.0 - 94.0 FL) 87.4 MCH (27.0 - 31.0 PG) 28.9 MCHC (33.0 - 37.0 G/DL) 33.0 RDW (11.5 - 14.5 %) 14.2 Plt Count (130 - 400 /CUMM) 245 MPV (7.4 - 10.4 FL) 9.2 Gran % (42.2 - 75.2 %) 62.5 Lymphocytes % (20.5 - 51.1 %) 28.4 Monocytes % (1.7 - 9.3 %) 6.8 Eosinophils % (0 - 5 %) 1.5 Basophils % (0.0 - 2.0 %) 0.8 Absolute Granulocytes (1.4 - 6.5 /CUMM) 4.4 Absolute Lymphocytes (1.2 - 3.4 /CUMM) 2.0 Absolute Monocytes (0.10 - 0.60 /CUMM) 0.5 Absolute Eosinophils (0.0 - 0.7 /CUMM) 0.1 Absolute Basophils (0.0 - 0.2 /CUMM) 0.1 Toxicology Urine Opiates Screen (>2000 NG/ML) < 100 Methadone Screen (>300 NG/ML) < 40 Barbiturate Screen (>200 NG/ML) < 60 Ur Phencyclidine Scrn (>25 NG/ML) < 6.00 Amphetamines Screen (>1000 NG/ML) < 100 U Benzodiazepines Scrn (>200 NG/ML) < 85 Urine Cocaine Screen (>300 NG/ML) < 50 Urine Cannabis Screen (>50 NG/ML) < 5.00 Serum Alcohol (<10 MG/DL) < 10.0 Urines Urine Color (YEL,AMB,STR) YEL Urine Clarity (CLEAR) CLEAR Urine pH (5.0 - 8.0) 7.5 Ur Specific [place] (1.001 - 1.035) 1.015 Urine Protein (NEG,<30 MG/DL) NEG Urine Ketones (NEG) TRACE H Urine Nitrite (NEG) NEG Urine Bilirubin (NEG) NEG Urine Urobilinogen (0.1 - 1.0 EU/dl) 0.2 Ur Leukocyte Esterase (NEG) NEG Ur Microscopic EXAM NOT REQUIRED Urine Hemoglobin (NEG) NEG Urine Glucose (N MG/DL) NEG Diagnostic Data EKG Results Sinus rhythm no acute changes CXR Results No active disease Other Results CT of the head No acute process or mass Assessment/Plan Assessment/Plan 1. Syncope questionable etiology. It is very unlikely that it is secondary to his history of SVT. He does have a vasovagal episode but this was the first episode of syncope. He was confused after the event but suggest a post ictal state and possible seizure. His prolactin was elevated. 2. Paroxysmal supraventricular tachycardia by history 3. Status post nephrectomy 4. Recurrent dizziness with slight movement of his head consider possible vestibular process. CT of the head was negative Recommendations 1. Continue to monitor on telemetry 2. Echocardiogram is pending 3. EEG is pending 4. If no etiology to his syncope is determined would consider an implantable loop recorder. Thank you for allowing [facility] to participate in the care of your patient. Consult Acknowledgment - Thank you for your consult request.
--- NOTE | 2017-07-29 14:22 | ECHOCARDIOGRAM REPORT ---
ADEN PARK Age: 72 : 1945 Gender: M Exam Date: 07/29/2017 10:51 Exam Location: Echo Lab Ht (in): 70 Wt (lb): 215 BSA: 2.22 BP: 144 / 78 Ordering Physician: Janes Baugh MD Referring Physician: Janes Baugh MD Technologist: Haresh Higgins [facility] Room Number: 180-2 Indications: PRESYNCOPE/SYNCOPE Rhythm: Sinus Technical Quality: fair FINDINGS Left Ventricle Normal size left ventricle.left ventricular wall thickness mildly increased. Normal left ventricular ejection fraction estimated at 60-65%. Right Ventricle Normal right ventricular size and function. Right Atrium Normal right atrial size. Left Atrium Left atrial size at the upper limits of normal. Mitral Valve Mild mitral annular calcification. Mild mitral regurgitation. Aortic Valve Aortic sclerosis. Trace to mild aortic regurgitation. Tricuspid Valve Tricuspid valve is normal in structure and function. Trace to mild tricuspid regurgitation. Pulmonic Valve Pulmonic valve not well visualized, grossly normal. Pericardium No pericardial effusion. Great Vessels Normal size aortic root. CONCLUSIONS Normal left ventricular systolic function with mild concentric hypertrophy. No significant valvular abnormalities noted. Bi Gray M.D. (Electronically Signed) Final Date: 29 Jul 2017 14:21 MEASUREMENTS (Male / Female) Normal Values 2D ECHO LV Diastolic Diameter PLAX 4.8 cm 4.2 - 5.9 / 3.9 - 5.3 cm LV Systolic Diameter PLAX 2.8 cm 2.1 - 4.0 cm LV Fractional Shortening PLAX 42.1 % 25 - 46 % LV Ejection Fraction 2D Teich 73.0 % IVS Diastolic Thickness 1.2 cm LVPW Diastolic Thickness 1.3 cm LV Relative Wall Thickness 0.5 Aortic Root Diameter 3.1 cm LV Ejection Fraction MOD BP 59.6 % >= 55 % LV Cardiac Index MOD BP 2171.4 cm/minm LV Diastolic Length 4C 7.7 cm 6.9 - 10.3 cm LV Diastolic Area 4C 27.0 cm LV Diastolic Volume MOD 4C 78.0 cm LV Ejection Fraction MOD 4C 51.3 % LV Stroke Volume MOD 4C 40.0 cm LV Cardiac Index MOD 4C 1638.8 cm/minm LV Systolic Length 4C 7.0 cm LV Systolic Area 4C 17.7 cm LV Systolic Volume MOD 4C 38.0 cm LV Ejection Fraction MOD 2C 66.3 % LV Cardiac Index MOD 2C 2663.0 cm/minm LV Diastolic Volume 4C AL 80.4 cm 85 - 139 / 69 - 109 cm LV Systolic Volume 4C AL 38.3 cm LV Ejection Fraction 4C AL 52.3 % LV Stroke Volume 4C AL 42.1 cm LV Cardiac Index 4C AL 1722.9 cm/minm LV Ejection Fraction 2C AL 67.6 % LV Cardiac Index 2C AL 2741.5 cm/minm DOPPLER AV Peak Velocity 124.0 cm/s AV Peak Gradient 6.2 mmHg LVOT Peak Velocity 97.2 cm/s LVOT Peak Gradient 3.8 mmHg Mitral E Point Velocity 64.7 cm/s Mitral A Point Velocity 70.6 cm/s Mitral E to A Ratio 0.9 MV Deceleration Time 180.0 ms TR Peak Velocity 247.0 cm/s TR Peak Gradient 24.4 mmHg PV Peak Velocity 105.0 cm/s PV Peak Gradient 4.4 mmHg
[2017-07-29 15:04] VITALS: BP 152/84
[2017-07-29 22:28] VITALS: BP 140/76
[2017-07-30 06:54] VITALS: BP 154/80
--- NOTE | 2017-07-30 07:02 | PN- Housestaff ---
Opal BHAKTA,[facility] 07/30/17 0702: Subjective Follow-up For: Syncope Tele-Events Since Last Visit: SB/NSR with HR 55-64. No overnight events. Subjective: Feels well. States the physical therapy made a significant improvement to his vertigo. He looks forward to his next treatment today. He feels some of his symptoms are due to a viral infection which he had a month ago. Review of Systems Constitutional: Reports: no symptoms. Objective Last 24 Hrs of Vital Signs/I&O Vital Signs Date Time Temp Pulse Resp B/P B/P Pulse O2 O2 Flow FiO2 Mean Ox Delivery Rate 07/30 0654 98.3 63 12 154/80 96 Room Air 07/29 2228 98.2 65 20 140/76 97 Room Air 07/29 1504 98.4 79 20 152/84 97 Room Air Intake & Output 07/30 0800 07/30 0000 07/29 1600 Intake Total 635 609 3849 Output Total 300 650 Balance 150 -200 400 Intake, IV 450 Intake, Oral 150 100 600 Number 0 Bowel Movements Output, Urine 300 650 Patient 147 lb Weight Weight Bed scale Measurement Method Physical Exam General Appearance: Alert, Oriented X3, Cooperative, Mild Distress Skin: No Rashes, No Breakdown Skin Temp/Moisture Exam: Warm/Dry Sepsis Skin Exam (color): Normal for Ethnicity HEENT: Atraumatic Cardiovascular: Normal S1, Normal S2, No Murmurs Lungs: Clear to Auscultation, Normal Air Movement Abdomen: Soft, No Tenderness Neurological: Normal Speech Extremities: No Edema Assessment/Plan Assessment: 72-year-old male with a past medical history of SVT and recurrent vasovagal attack was brought to the ED after he had an episode of unresponsiveness while walking to his car. Assessment: 1. Syncope 2. BPPV 3. History of Vasovagal Syncope 4. History of Hyperlipidemia 5. History of BPH Plan: * Discontinue telemetry. He is stable to be discharged today. * It is unclear what precipitated his episode of syncope. He states this one is different from his usual vasovagal symptoms * His EEG showed no focal or epileptiform abnormalities * It is unclear what precipitated his dizziness but he reports significant improvement with talib meneuver. * Continue PT. Will require outpatient vestibular rehab. This requires prior auth from PCP for which the patient has been educated. * Will start him on meclizine 12.5mg TIDprn on discharge if symptoms persists. * Echocardiogram showed normal LVEF with no valvular abnormalities. * Continue statin and tamsulosin * Diet: regular * DVT Prophylaxis: SC Lovenox * Code: Full Code Problem List: 1. Syncope Pain Ratin Pain Location: none Pain Goal: Remain pain free Pain Plan: none Tomorrow's Labs & Rationales: none Fadumo Gray MD 07/30/17 0949: Attending MD Review Statement Attending Statement Attending MD Statement: examined this patient, discuss w/resident/PA/SCHOOL BUS DISPATCHER, agreed w/resident/PA/SCHOOL BUS DISPATCHER, reviewed EMR data (avail), discussed with nursing, discussed with case mgmt, reviewed images Attending Assessment/Plan: Patient feels markedly better after physical therapy did the Talib maneuver. He was able to walk and his dizziness was better. Today he trialed stairs as well. His echo is completely normal and there been no arrhythmias on the monitor. He will had his EEG and will await neurology follow-up and if cleared by neurology and the EEG is negative then the plan is discharge today with close outpatient follow-up. He is in the process of transitioning to a PCP in [place] and he will follow-up with that PCP. He understands he needs a referral for outpatient vestibular rehabilitation.
--- NOTE | 2017-07-30 07:23 | Patient Discharge Instructions ---
Discharge Instructions General Discharge Information You were seen/treated for: Syncope Special Instructions: Please follow up with your PCP and recep within one week of discharge. Please request your PCP for a vestibular rehab referral. Please follow up with a ENT within 1-2 weeks of discharge. Diet Continue normal diet: Yes Activity Full Activity/No Limits: Yes Acute Coronary Syndrome Inclusion Criteria At DC or during hospital stay patient has or had the following: ACS DIAGNOSIS No Discharge Core Measures Meds if any: Prescribed or Continued at Discharge Meds if any: NOT Prescribed or Continued at Discharge Congestive Heart Failure Inclusion Criteria At DC or during hospital stay patient has or had the following: CHF DIAGNOSIS No Discharge Core Measures Meds if any: Prescribed or Continued at Discharge Meds if any: NOT Prescribed or Continued at Discharge Cerebrovascular accident Inclusion Criteria At DC or during hospital stay patient has or had the following: CVA/TIA Diagnosis No Discharge Core Measures Meds if any: Prescribed or Continued at Discharge Meds if any: NOT Prescribed or Continued at Discharge Venous thromboembolism Inclusion Criteria VTE Diagnosis No VTE Type NONE VTE Confirmed by (Test) NONE Discharge Core Measures - Per Current guidelines, there needs to be overlap - treatment for the first 5 days of Warfarin therapy. - If discharged on Warfarin prior to 5 days of - overlap therapy, the patient will need to be - assessed for post discharge needs including - *Post discharge parental anticoagulation - *Warfarin and/or parental anticoagulation education - *Follow up date to check INR post discharge At least 5 days overlap therapy as Inpatient No Meds if any: Prescribed or Continued at Discharge Note: Overlap Therapy is Warfarin and Anticoagulant Meds if any: NOT Prescribed or Continued at Discharge
--- NOTE | 2017-07-30 09:13 | Cons- Neurology ---
General Information and HPI Consulting Request Date of Consult: 07/30/17 Requested By: Fadumo Gray MD Reason for Consult: vertigo, syncope Source of Information: patient, MD, EMR History of Present Illness: 72-year-old man with a long history of neurocardiogenic syncope and a history of SVT was out shopping several days ago when he apparently passed out but this was unwitnessed. He struck his head. He was found on the ground and brought to the [facility] ED and subsequently admitted. There is no mention of any observation of convulsive activity or incontinence. There was no tongue biting. There is no history of seizures strokes or TIAs. The patient states he does not remember falling and does not remember the ambulance ride. This differs from his typical syncopal episode in which she usually feels diaphoretic and can often abort this spell by lying down. Yesterday when he was moving around in the bed he felt dizzy. The physical therapist did some vestibular maneuvers and he states he now feels better. Allergies/Medications Allergies: Coded Allergies: NO KNOWN ALLERGIES (NONE 07/29/17) Home Med List: Meclizine HCl 12.5 MG TABLET 1 TAB PO TIDPRN Dizziness Rosuvastatin Calcium (Crestor) 10 MG TABLET 1 TAB PO DAILY hld (Reported) Tamsulosin HCl 0.4 MG CAP.ER.24H 1 CAP PO DAILY bph (Reported) Current Medications: Current Medications Sig/Shamika Start time Last Medication Dose Route Stop Time Status Admin Atorvastatin Calcium 40 MG 1700 07/29 1700 AC 07/29 PO 1659 Enoxaparin Sodium 40 MG DAILY 07/29 1424 AC 07/29 SC 1658 Fluticasone 2 SPRAY DAILY 07/29 2330 AC 07/30 Propionate GRANT 0613 Heparin Sodium 5,000 UNIT Q8 07/28 2200 DC 07/29 (Porcine) SC 0606 Meclizine HCl 25 MG 1130 07/29 1130 DC PO 07/29 1131 Sodium Chloride 1,000 ML Q13H 07/28 2145 DC 07/29 IV 07/29 2344 0254 Tamsulosin HCl 0.4 MG 1900 07/29 1900 AC 07/29 PO 1852 Tamsulosin HCl 0.4 MG DAILY 07/29 0900 DC PO Review of Systems Review of Systems: REVIEW OF SYSTEMS: (-) = negative / normal blank = not discussed Neurologic: see HPI Eyes: (-) ENT: Reports some sinus congestion Constitutional: (-) CV: See HPI; cardiology plans to implant a loop recorder Respiratory: (-) /Renal: (-) Musculoskeletal: (-) Skin: (-) Psychiatric: (-) Heme: (-) GI: (-) Allergy/Immune: (-) Endocrine: (-) Other: (-) Past History Travel History Traveled to [place] past 21 day No Medical History Blood Transfusion Hx: Yes Neurological: NONE EENT: NONE Cardiovascular: SVT Respiratory: NONE Gastrointestinal: NONE Hepatic: NONE Renal: NONE Musculoskeletal: NONE Psychiatric: NONE Endocrine: NONE Blood Disorders: NONE Cancer(s): NONE 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 Home Smoking Status: Never Smoked Exam & Diagnostic Data Vital Signs and I&O Vital Signs Date Time Temp Pulse Resp B/P B/P Pulse O2 O2 Flow FiO2 Mean Ox Delivery Rate 07/30 0654 98.3 63 12 154/80 96 Room Air 07/29 2228 98.2 65 20 140/76 97 Room Air 07/29 1504 98.4 79 20 152/84 97 Room Air Intake & Output 07/30 1600 07/30 0800 07/30 0000 Intake Total 150 100 Output Total 300 Balance 150 -200 Intake, Oral 150 100 Output, Urine 300 Patient 147 lb Weight Weight Bed scale Measurement Method Physical Exam: PHYSICAL EXAMINATION: nl = normal NT or blank = not tested GENERAL Appearance: nl Head: Reports mild tenderness in the occiput Eyes: nl ENT: nl Neck: nl Carotids: nl Lungs: nl Heart: nl Extremities: nl NEUROLOGIC MENTAL STATUS Level of consciousness: nl Orientation: nl Attention / Concentration: nl Memory: nl Fund of Knowledge: nl Speech / Language: nl NEUROLOGIC CRANIAL NERVES I: Olfaction: NT II: Optic nerves: nl Visual [place]: nl III: Pupils: nl Levator pal[place]brae: nl III, IV, : Ocular alignment: nl Extraocular motility: nl Pursuits/ saccades: nl V: Facial sensation: nl Masseter/Pterygoids: nl VII: Facial Motor: nl VIII: Hearing (finger rub): nl IX, X: Uvula and palate: nl XI: SCM, Upper trap.: nl XII: Tongue: nl MOTOR / NEUROMUSCULAR Bulk: nl Tone: nl Strength: nl Rapid alternating movements: nl Fine motor movements: nl Abnormal / involuntary movements: none CEREBELLAR / COORDINATION: intact SENSATION: intact DTR's symmetrically trace to 1+ PLANTARS: flexor GAIT: nl; tandem gait and single limb stance unsteady Last 48 Hours of Lab Results: Laboratory Tests 07/29 07/28 07/28 0255 2046 1827 Chemistry Sodium (137 - 145 mmol/L) 142 Potassium (3.5 - 5.1 mmol/L) 4.1 Chloride (98 - 107 mmol/L) 108 H Carbon Dioxide (22 - 30 mmol/L) 25 Anion Gap (5 - 16) 8 BUN (9 - 20 mg/dL) 12 Creatinine (0.7 - 1.2 mg/dL) 0.8 Estimated GFR (>60 ml/min) > 60 BUN/Creatinine Ratio (7 - 25 %) 15.0 Lactic Acid Cancelled Troponin I (<0.11 ng/ml) < 0.01 < 0.01 Hematology CBC w Diff NO MAN DIFF REQ WBC (4.8 - 10.8 /CUMM) 8.2 RBC (4.70 - 6.10 /CUMM) 4.80 Hgb (14.0 - 18.0 G/DL) 14.0 Hct (42 - 52 %) 41.9 L MCV (80.0 - 94.0 FL) 87.3 MCH (27.0 - 31.0 PG) 29.2 MCHC (33.0 - 37.0 G/DL) 33.5 RDW (11.5 - 14.5 %) 14.0 Plt Count (130 - 400 /CUMM) 216 MPV (7.4 - 10.4 FL) 9.0 Gran % (42.2 - 75.2 %) 71.0 Lymphocytes % (20.5 - 51.1 %) 19.0 L Monocytes % (1.7 - 9.3 %) 8.8 Eosinophils % (0 - 5 %) 0.9 Basophils % (0.0 - 2.0 %) 0.3 Absolute Granulocytes (1.4 - 6.5 /CUMM) 5.8 Absolute Lymphocytes (1.2 - 3.4 /CUMM) 1.6 Absolute Monocytes (0.10 - 0.60 /CUMM) 0.7 H Absolute Eosinophils (0.0 - 0.7 /CUMM) 0.1 Absolute Basophils (0.0 - 0.2 /CUMM) 0 07/28 07/28 1620 1542 Chemistry Sodium (137 - 145 mmol/L) 143 Potassium (3.5 - 5.1 mmol/L) 3.8 Chloride (98 - 107 mmol/L) 103 Carbon Dioxide (22 - 30 mmol/L) 26 Anion Gap (5 - 16) 13 BUN (9 - 20 mg/dL) 15 Creatinine (0.7 - 1.2 mg/dL) 0.9 Estimated GFR (>60 ml/min) > 60 BUN/Creatinine Ratio (7 - 25 %) 16.7 Glucose (65 - 99 mg/dL) 85 Lactic Acid (0.7 - 2.1 mmol/L) 1.7 Calcium (8.4 - 10.2 mg/dL) 9.6 Total Bilirubin (0.2 - 1.3 mg/dL) 0.8 AST (17 - 59 U/L) 29 ALT (21 - 72 U/L) 37 Alkaline Phosphatase (< 127 U/L) 70 Troponin I (<0.11 ng/ml) < 0.01 Total Protein (6.3 - 8.2 g/dL) 6.9 Albumin (3.5 - 5.0 g/dL) 4.1 Globulin (1.9 - 4.2 gm/dL) 2.8 Albumin/Globulin Ratio (1.1 - 2.2 %) 1.5 TSH (0.270 - 4.200 uIU/mL) 2.390 Free T4 (0.78 - 2.44 ng/dL) 0.94 Free T3 (2.45 - 5.93 pg/mL) 4.2 Prolactin (3.7 - 17.9 ng/mL) 35.3 H Hematology CBC w Diff NO MAN DIFF REQ WBC (4.8 - 10.8 /CUMM) 7.1 RBC (4.70 - 6.10 /CUMM) 5.29 Hgb (14.0 - 18.0 G/DL) 15.3 Hct (42 - 52 %) 46.3 MCV (80.0 - 94.0 FL) 87.4 MCH (27.0 - 31.0 PG) 28.9 MCHC (33.0 - 37.0 G/DL) 33.0 RDW (11.5 - 14.5 %) 14.2 Plt Count (130 - 400 /CUMM) 245 MPV (7.4 - 10.4 FL) 9.2 Gran % (42.2 - 75.2 %) 62.5 Lymphocytes % (20.5 - 51.1 %) 28.4 Monocytes % (1.7 - 9.3 %) 6.8 Eosinophils % (0 - 5 %) 1.5 Basophils % (0.0 - 2.0 %) 0.8 Absolute Granulocytes (1.4 - 6.5 /CUMM) 4.4 Absolute Lymphocytes (1.2 - 3.4 /CUMM) 2.0 Absolute Monocytes (0.10 - 0.60 /CUMM) 0.5 Absolute Eosinophils (0.0 - 0.7 /CUMM) 0.1 Absolute Basophils (0.0 - 0.2 /CUMM) 0.1 Toxicology Urine Opiates Screen (>2000 NG/ML) < 100 Methadone Screen (>300 NG/ML) < 40 Barbiturate Screen (>200 NG/ML) < 60 Ur Phencyclidine Scrn (>25 NG/ML) < 6.00 Amphetamines Screen (>1000 NG/ML) < 100 U Benzodiazepines Scrn (>200 NG/ML) < 85 Urine Cocaine Screen (>300 NG/ML) < 50 Urine Cannabis Screen (>50 NG/ML) < 5.00 Serum Alcohol (<10 MG/DL) < 10.0 Urines Urine Color (YEL,AMB,STR) YEL Urine Clarity (CLEAR) CLEAR Urine pH (5.0 - 8.0) 7.5 Ur Specific [place] (1.001 - 1.035) 1.015 Urine Protein (NEG,<30 MG/DL) NEG Urine Ketones (NEG) TRACE H Urine Nitrite (NEG) NEG Urine Bilirubin (NEG) NEG Urine Urobilinogen (0.1 - 1.0 EU/dl) 0.2 Ur Leukocyte Esterase (NEG) NEG Ur Microscopic EXAM NOT REQUIRED Urine Hemoglobin (NEG) NEG Urine Glucose (N MG/DL) NEG Imaging/Other Studies: EEG 07/29/2017: Normal IMPRESSION: No CT evidence of intracranial space-occupying mass, bleed or infarct. DICTATED BY: Boo BHAKTA,Sofia DATE/TIME DICTATED:07/28/17 / 1546 CT C sp IMPRESSION: 1. No CT evidence of acute fracture. 2. Degenerative disc disease at C4-C5, C5-C6, C6-C7 and C7-T1, 3. Combination of posterior osteophyte ridges and facet joints arthropathy causes foraminal stenosis at multiple levels as above. DICTATED BY: Sofia Haddad MD DATE/TIME DICTATED:07/28/172 FINDINGS Left Ventricle Normal size left ventricle.left ventricular wall thickness mildly increased. Normal left ventricular ejection fraction estimated at 60-65%. Right Ventricle Normal right ventricular size and function. Right Atrium Normal right atrial size. Left Atrium Left atrial size at the upper limits of normal. Mitral Valve Mild mitral annular calcification. Mild mitral regurgitation. Aortic Valve Aortic sclerosis. Trace to mild aortic regurgitation. Tricuspid Valve Tricuspid valve is normal in structure and function. Trace to mild tricuspid regurgitation. Pulmonic Valve Pulmonic valve not well visualized, grossly normal. Pericardium No pericardial effusion. Great Vessels Normal size aortic root. CONCLUSIONS Normal left ventricular systolic function with mild concentric hypertrophy. No significant valvular abnormalities noted. Bi Gray M.D. (Electronically Signed) Final Date: 29 Jul 2017 14:21 Assessment/Plan Assessment: Syncope most likely vasovagal versus arrhythmogenic given his history of SVT. History less suggestive of seizure or TIA. Recommendations: Continued cardiac workup Maintain adequate hydration and liberalize sodium intake to help increase cerebral blood volume Consider adding thigh high compression stockings to help promote venous return Office follow-up as needed Consult Acknowledgment - Thank you for your consult request.
[2017-07-30] MEDS ORDERED: MECLIZINE HCL12.5 M1 PO ×2 (09:44→10:10)
--- NOTE | 2017-07-30 10:06 | ELECTROENCEPHALOGRAM REPORT ---
Electroencephalogram Report Electroencephalogram Results Date of service: 07/29/17 Attending MD: Isaac BHAKTA,Fadumo Contreras [employer] Helper: Ben Davis EEG Number: [id number] Test Utilizes: 10-20 system, 21 lead 18 channel digital recording Pertinent Hx/Physical/Neuro Findings/Clin Diagnosis: syncope versus seizure Inpatient Medications: Current Medications Sig/Shamika Start time Last Medication Dose Route Stop Time Status Admin Atorvastatin Calcium 40 MG 1700 07/29 1700 AC 07/29 PO 1659 Enoxaparin Sodium 40 MG DAILY 07/29 1424 AC 07/29 SC 1658 Fluticasone 2 SPRAY DAILY 07/29 2330 AC 07/30 Propionate GRANT 0613 Heparin Sodium 5,000 UNIT Q8 07/28 2200 DC 07/29 (Porcine) SC 0606 Meclizine HCl 25 MG 1130 07/29 1130 DC PO 07/29 1131 Sodium Chloride 1,000 ML Q13H 07/28 2145 DC 07/29 IV 07/29 2344 0254 Tamsulosin HCl 0.4 MG 1900 07/29 1900 AC 07/29 PO 1852 Tamsulosin HCl 0.4 MG DAILY 07/29 0900 DC PO Interpretation: The background is composed of well-formed moderate amplitude posterior 9 Hz alpha which attenuates on eye opening. Low voltage faster beta activity is intermixed and seen best in the frontal regions. There are no focal, lateralized or epileptiform abnormalities. Hyperventilation and photic stimulation were performed and at no additional information Impression: Normal EEG in the states of wakefulness and drowsiness. No focal or epileptiform abnormalities identified.
--- NOTE | 2017-07-30 10:11 | Discharge Summary ---
Visit Information Visit Dates Admission Date: 07/28/17 Discharge Date: 07/30/17 Hospital Course Course Attending Physician: Isaac BHAKTA,Fadumo Contreras Primary Care Physician: Elier BHAKTA, [facility] Course: Mr Covington is a pleasant 72-year-old male with a past medical history of SVT, vasovagal episodes, hyperlipidemia and BPH who was brought to the ED after he had an episode of unwitnessed syncope. Below is a list of conditions he was admitted and treated for 1. Syncope 2. BPPV On arrival to ED, patient was alert but not oriented to person or time. He had been complaining of pain in the back of his head. Initial CT scan of the head in the ED did not reveal any acute abnormalities. He was admitted to the telemetry floor for monitoring of arrhythmias. ACS was ruled out with serial negative troponins and EKGs. It is unclear what precipitated his episode of syncope. He felt that this episode was different from his usual vasovagal symptoms even though earlier that day he did experience the prodromal symptoms. He was evaluated by cardiology and neurology. An echocardiogram was performed which showed normal LVEF with no valvular abnormalities. . Telemetry tracings showed no evidence of pauses or arrhythmias. His neurological exam was unremarkable and his EEG showed no focal or epileptiform abnormalities. It is possible that his syncope was likely another vasovagal episode as his history was less suggestive of seizure. He had complains of dizziness and vertigo with head movements the following morning, concerning for BPPV. He had a positive Angus-Hallpike maneuver. He was treated by physical therapy with significant improvement in his symptoms. He will require outpatient vestibular rehab. This requires prior authorization from PCP for which the patient has been asked to request from his PCP. He was discharged on PO Meclizine to be used as needed for his dizziness. He was recommended to follow up with his remote advisor after discharge with considerations for implantable loop recorder if he has recurrent symptoms. Allergies: Coded Allergies: NO KNOWN ALLERGIES (NONE 07/29/17) Significant Procedures: Electroencephalogram Interpretation: The background is composed of well-formed moderate amplitude posterior 9 Hz alpha which attenuates on eye opening. Low voltage faster beta activity is intermixed and seen best in the frontal regions. There are no focal, lateralized or epileptiform abnormalities. Hyperventilation and photic stimulation were performed and at no additional information Impression: Normal EEG in the states of wakefulness and drowsiness. No focal or epileptiform abnormalities identified. SERVICE DATE: 07/28/17 EXAM TYPE: CARD - ECHOCARDIOGRAM FINDINGS Left Ventricle Normal size left ventricle.left ventricular wall thickness mildly increased. Normal left ventricular ejection fraction estimated at 60-65%. Right Ventricle Normal right ventricular size and function. Right Atrium Normal right atrial size. Left Atrium Left atrial size at the upper limits of normal. Mitral Valve Mild mitral annular calcification. Mild mitral regurgitation. Aortic Valve Aortic sclerosis. Trace to mild aortic regurgitation. Tricuspid Valve Tricuspid valve is normal in structure and function. Trace to mild tricuspid regurgitation. Pulmonic Valve Pulmonic valve not well visualized, grossly normal. Pericardium No pericardial effusion. Great Vessels Normal size aortic root. CONCLUSIONS Normal left ventricular systolic function with mild concentric hypertrophy. No significant valvular abnormalities noted. SERVICE DATE: 07/28/17 EXAM TYPE: RAD - XRY-PORTABLE CHEST XRAY FINDINGS: The cardiac size and mediastinal silhouette are normal. No pulmonary venous congestion. The lungs are symmetrically expanded and clear. No pleural effusion or pneumothorax. The visualized bones are unremarkable. IMPRESSION: No acute cardiopulmonary findings. SERVICE DATE: 07/28/17 EXAM TYPE: CAT - CT HEAD WO IV CONTRAST FINDINGS: CEREBRAL HEMISPHERES: There is no evidence of intra-axial or extra-axial mass, hemorrhage or acute infarct. BRAIN PARENCHYMA: Normal gould-white matter differentiation. SUBDURAL SPACE: No bleed. BASAL GANGLIA AND PINEAL GLAND: Unremarkable VENTRICLES: Symmetric and normal in size. CEREBELLUM AND BRAINSTEM: No space-occupying mass, hemorrhage or acute infarct. CEREBELLOPONTINE ANGLES: No lesion found. ORBITS: No intraorbital mass. VESSELS: Unremarkable SKULL BASE: Unremarkable INCLUDED SINUSES AT SKULL BASE: Clear SKULL AND SKIN: No fracture or bone lesion found. IMPRESSION: No CT evidence of intracranial space-occupying mass, bleed or infarct. SERVICE DATE: 07/28/17 EXAM TYPE: CAT - CT CERV SPINE WO IV CONTRAST FINDINGS: SKULL BASE: Visualized structures at skull base are normal, Included facial sinuses are clear, CERVICAL VERTEBRAE: Seven cervical vertebrae identified maintaining proper height and alignment, DISCS: C1-C2: There is no CT evidence of significant osseous narrowing of the central canal or neural foramen. C2-C3: There is no CT evidence of significant osseous narrowing of the central canal or neural foramen. C3-C4: There is no CT evidence of significant osseous narrowing of the central canal or neural foramen. C4-C5: There is degenerative disc disease evident by narrowing of disc space and small posterior and lateral osteophyte ridge caused foraminal stenosis on the RIGHT. C5-C6: Degenerative disc disease combined with osteophyte ridge causes foraminal stenosis on the RIGHT. No central stenosis. No fractures. C6-C7: Degenerative disc disease evidenced by narrowing of disc space and developed osteophyte ridges cause mild narrowing of the LEFT foramen. C7-T1: There is no CT evidence of significant osseous narrowing of the central canal or neural foramen. PARAVERTEBRAL SOFT TISSUE: Paravertebral soft tissues unremarkable. IMPRESSION: 1. No CT evidence of acute fracture. 2. Degenerative disc disease at C4-C5, C5-C6, C6-C7 and C7-T1, 3. Combination of posterior osteophyte ridges and facet joints arthropathy causes foraminal stenosis at multiple levels as above. Disposition Summary Disposition Principal Diagnosis: Syncope Benign Paroxysmal Positional Vertigo Additional Diagnosis: Vasovagal Syncope SVT BPH Hyperlipidemia Discharge Disposition: home or self care Discharge Instructions General Discharge Information Code Status: Full Code Patient's Diet: Regular Patient's Activity: As tolerated Follow-Up Instructions/Appts: Please follow up with your PCP and remote advisor within one week of discharge. Please request your PCP for a vestibular rehab referral. Please follow up with a ENT within 1-2 weeks of discharge. Medications at Discharge Discharge Medications: Continue taking these medications: Tamsulosin HCl (Tamsulosin HCl) 0.4 MG CAP.ER.24H 1 Capsule ORAL DAILY Qty = 90 Comments: Last Taken: 07/29/17 Time: 7:00 PM Rosuvastatin Calcium (Crestor) 10 MG TABLET 1 Tablet ORAL DAILY Qty = 38 Comments: Last Taken: 07/29/17 Time: 5:00 PM Start taking the following new medications: Meclizine HCl (Meclizine HCl) 12.5 MG TABLET 1 Tablet ORAL THREE TIMES A DAY NEEDED Qty = 30 No Refills Comments: NOT GIVEN IN HOSPITAL Copies To: Erik BHAKTA,Albert Garcia MD
--- NOTE | 2017-07-30 10:54 | PN- Cardiology ---
Subjective Subjective: Patient is resting comfortably without new complaints. Objective Vital Signs and I&Os Vital Signs Date Time Temp Pulse Resp B/P B/P Pulse O2 O2 Flow FiO2 Mean Ox Delivery Rate 07/30 0654 98.3 63 12 154/80 96 Room Air 07/29 2228 98.2 65 20 140/76 97 Room Air 07/29 1504 98.4 79 20 152/84 97 Room Air Intake & Output 07/30 1600 07/30 0800 07/30 0000 07/29 1600 07/29 0800 07/29 0000 Intake Total 446 386 2716 225 Output Total 300 650 500 Balance 150 -200 400 -275 Intake, IV 450 225 Intake, Oral 150 100 600 Number 0 Bowel Movements Output, Urine 300 650 500 Patient 147 lb 197 lb Weight Weight Bed scale Bed scale Measurement Method Physical Exam: General: no apparent distress. Alert. Eyes: No obvious scleral icterus. HEENT: No jugular venous distention or abnormal jugular venous pulsations. Cardiovascular: Normal intensity S1/S2. PMI not grossly displaced. Respiratory: Lungs clear to auscultation bilaterally. Abdomen: Soft, nontender with no guarding or rebound tenderness. Musculoskeletal: No clubbing or cyanosis noted Skin: warm Neurologic: No gross focal deficits noted. Lymph: No gross lymphadenopathy. Current Medications: Current Medications Sig/Shamika Start time Last Medication Dose Route Stop Time Status Admin Atorvastatin Calcium 40 MG 1700 07/29 1700 AC 07/29 PO 1659 Enoxaparin Sodium 40 MG 1700 07/30 1700 AC SC Enoxaparin Sodium 40 MG DAILY 07/29 1424 DC 07/29 SC 1658 Fluticasone 2 SPRAY DAILY 07/29 2330 AC 07/30 Propionate GRANT 0613 Heparin Sodium 5,000 UNIT Q8 07/28 2200 DC 07/29 (Porcine) SC 0606 Meclizine HCl 25 MG 1130 07/29 1130 DC PO 07/29 1131 Sodium Chloride 1,000 ML Q13H 07/28 2145 DC 07/29 IV 07/29 2344 0254 Tamsulosin HCl 0.4 MG 1900 07/29 1900 AC 07/29 PO 1852 Tamsulosin HCl 0.4 MG DAILY 07/29 0900 DC PO Results Last 48 Hrs of Labs/Mics: Laboratory Tests 07/29/17 0255: Anion Gap 8, Estimated GFR > 60, BUN/Creatinine Ratio 15.0, Troponin I < 0.01, CBC w Diff NO MAN DIFF REQ, RBC 4.80, MCV 87.3, MCH 29.2, MCHC 33.5, RDW 14.0, MPV 9.0, Gran % 71.0, Lymphocytes % 19.0 L, Monocytes % 8.8, Eosinophils % 0.9, Basophils % 0.3, Absolute Granulocytes 5.8, Absolute Lymphocytes 1.6, Absolute Monocytes 0.7 H, Absolute Eosinophils 0.1, Absolute Basophils 0 07/28/172045: Troponin I < 0.01 07/28/17 1827: Lactic Acid Cancelled 07/28/17 1620: Urine Opiates Screen < 100, Methadone Screen < 40, Barbiturate Screen < 60, Ur Phencyclidine Scrn < 6.00, Amphetamines Screen < 100, U Benzodiazepines Scrn < 85, Urine Cocaine Screen < 50, Urine Cannabis Screen < 5.00, Urine Color YEL, Urine Clarity CLEAR, Urine pH 7.5, Ur Specific [place] 1.015, Urine Protein NEG, Urine Ketones TRACE H, Urine Nitrite NEG, Urine Bilirubin NEG, Urine Urobilinogen 0.2, Ur Leukocyte Esterase NEG, Ur Microscopic EXAM NOT REQUIRED, Urine Hemoglobin NEG, Urine Glucose NEG 07/28/17 1542: Anion Gap 13, Estimated GFR > 60, BUN/Creatinine Ratio 16.7, Glucose 85, Lactic Acid 1.7, Calcium 9.6, Total Bilirubin 0.8, AST 29, ALT 37, Alkaline Phosphatase 70, Troponin I < 0.01, Total Protein 6.9, Albumin 4.1, Globulin 2.8, Albumin/ Globulin Ratio 1.5, TSH 2.390, Free T4 0.94, Free T3 4.2, Prolactin 35.3 H, CBC w Diff NO MAN DIFF REQ, RBC 5.29, MCV 87.4, MCH 28.9, MCHC 33.0, RDW 14.2, MPV 9.2, Gran % 62.5, Lymphocytes % 28.4, Monocytes % 6.8, Eosinophils % 1.5, Basophils % 0.8, Absolute Granulocytes 4.4, Absolute Lymphocytes 2.0, Absolute Monocytes 0.5, Absolute Eosinophils 0.1, Absolute Basophils 0.1, Serum Alcohol < 10.0 Recent Imaging Studies: Telemetry tracings were personally reviewed and shows sinus rhythm and sinus bradycardia with no advanced heart block or prolonged pauses EEG Normal EEG in the states of wakefulness and drowsiness. No focal or epileptiform abnormalities identified. Echocardiogram CONCLUSIONS Normal left ventricular systolic function with mild concentric hypertrophy. No significant valvular abnormalities noted. Bi Gray M.D. (Electronically Signed) Final Date: 29 Jul 2017 14:21 Assessment/Plan Assessment/Plan 1. Syncope questionable etiology. It is very unlikely that it is secondary to his history of SVT. He does have a vasovagal episode but this was the first episode of syncope. He was confused after the event but suggest a post ictal state and possible seizure. His prolactin was elevated. 2. Paroxysmal supraventricular tachycardia by history 3. Status post nephrectomy 4. Recurrent dizziness with slight movement of his head consider possible vestibular process. CT of the head was negative Patient doing well today. Echocardiogram as above shows no major structural pathology. Telemetry tracings show no evidence of pauses or advanced heart block. EEG without obvious seizure activity. We did review some education regarding vasovagal episodes. If recurrent episodes in the future we will consider outpatient event monitor versus implantable loop recorder. Follow-up in my office after discharge. Matthieu Valencia MD [facility] Continue telemetry? No
== END 2017-07-30 11:40 | DRG 312 ==
LOC: ERH 15:23 → 1NO 17:01 → ERHI 17:01 → ENRESERV 20:38 → ENTRNSPT 22:19 → EDTRNSPTSTS 22:26 → 1NO 22:33 → CMPTRNSPT 22:54 → 1NO 07-29 07:10 → ENPENDDIS 07-30 10:04 → 1NO 07-30 11:40
PROVIDERS: Physician Assistant Medical; Student in an Organized Health Care Education/Training Program
DX: R55 Syncope and collapse (principal); I47.1 Supraventricular tachycardia; E78.5 Hyperlipidemia, unspecified; N40.0 Benign prostatic hyperplasia without lower urinary tract symptoms; H81.10 Benign paroxysmal vertigo, unspecified ear
CPT/HCPCS: 1NSP; 36592; 71045; 80307; 81003; 82436; 84481; 93005; 93010; 93306; 95816; 97112-GO; 97116-GO; 97161-GP; 97530-GO; G0480; J0696; J1644; J1650; J2310